=== PATIENT | male | born 1995 | race Two or more races ===

== ENCOUNTER 2016-08-21 20:15 | Emergency (ER) | payer OTHER ==
[~2016-08-21] VITALS: Ht 177.8 cm; Wt 88.5 kg
[2016-08-21 20:26] VITALS: BP 142/82
== END 2016-08-22 00:17 | disposition home or self-care (01) ==
LOC: ER 20:26
DX: L03.115 Cellulitis of right lower limb (principal); W57.XXXA Bitten or stung by nonvenomous insect and other nonvenomous arthropods, initial encounter; Y93.89 Activity, other specified; Y99.8 Other external cause status; Y92.89 Other specified places as the place of occurrence of the external cause